=== PATIENT | female | born 1960 | race Caucasian/White ===

== ENCOUNTER → 2016-06-16 | Outpatient (CLI) | payer OTHER, MEDICAID ==
[~2016-06-16] MED LIST: GADOBUTROL 10 ML VIAL IVP ONE
--- NOTE | 2016-06-16 10:59 | MR ---
Unenhanced and Enhanced MR Imaging of the Brain (With Additional Attention to the Pituitary Gland) Clinical History: 56-year-old female with a history of [place]'s disease and prior pituitary surgery for an adenoma in 2002. ICD 10 Diagnostic Code: D35.2. Technique: Sagittal and axial T1-weighted, axial SWI, T2, FLAIR, DWI, and ADC imaging of the brain. P re- and postcontrast sagittal and coronal reduced opdjs-co-doxk thin-collimated sequencing through th e sella turcica. Dynamic coronal T1-weighted sequences were obtained at multiple time intervals throu gh the pituitary gland. Additionally, contrast-enhanced axial SPGR and coronal T1-weighted spin-echo and sagittal T2 FLAIR sequences of the brain were obtained. The patient received 5 mL of IV Gadavist without complication. Comparison Studies: MR imaging of the brain, dated January 22, 2011 and January 09, 2010. Findings: There are stable postsurgical features involving the pituitary gland, with a decreased volu me of the left pituitary lobe. There is a stable diminished focus of contrast enhancement measuring 4 .0 mm in the right pituitary lobe (seen on the initial dynamic contrast-enhanced series), which could reflect a tiny residual "microadenoma" or an area of scarring. The lack of interval change is consis tent with a benign etiology. There is no infundibular deviation or suprasellar extension. The optic c hiasm appears normal. There is a normal appearance to the cavernous carotid artery flow-voids. There is normal signal within the clivus, and the sphenoid sinus is patent. The prepontine cistern is daniel l. The ventricles and basilar cisterns are normal in size, and symmetrical in configuration. There is no midline shift or other evidence of mass effect. There is no acute or subacute abnormal intra- or ext raaxial fluid collection. On the FLAIR sequences, there is some persistent periventricular hyperinten se signal in the deep white matter (please reference axial series 6, images 20-24), which is unchange d. The brainstem and cerebellum are normal. The SWI sequences do not reveal any blooming artifact to suggest occult hemorrhagic products or amyloid angiopathy. There is no restricted diffusion to sugges t an acute or subacute infarct. The brainstem and cerebellum appear normal. There are appropriate leon tebrobasilar, carotid artery, and dural venous sinus flow-voids. The craniocervical junction, pineal gland, and orbits are unremarkable. The paranasal sinuses and mastoids are patent. There is no unusua l parenchymal or leptomeningeal enhancement of the brain. Impression: Stable MRI appearance of the brain and of the pituitary gland, compared to January 22 and January 09, 2010.
== END ==
LOC: FIMAGING 04-22 12:44
PROVIDERS: ATTEND Neurological Surgery
DX: Z86.39 Personal history of other endocrine, nutritional and metabolic disease (principal)
CPT/HCPCS: 70553; A9585

== ENCOUNTER → 2016-06-20 | Outpatient (CLI) | payer OTHER, MEDICAID ==
--- NOTE | 2016-06-20 17:17 | MR ---
MRI of the Left Knee Clinical Indications: Left knee pain and locking, evaluate for meniscal tear. Technique: Fat-suppressed, fast T2-weighted images were acquired axially, sagittally, and coronally. T1-weighted sagittal images were obtained. Findings Medial compartment: Undersurface fraying and mild partial tear of the medial meniscus is present at the posteromedial corner, best visualized on sagittal image #7 of series #6 and coronal image #18 of series #4. The remainder of the medial meniscus is intact, and medial compartment articular cartilag e is intact. Lateral compartment: Meniscus and articular cartilage appear intact. Patellofemoral compartment: No focal chondral lesion. Anterior and posterior cruciate ligaments are intact. Medial and lateral collateral ligaments are in tact. Distal quadriceps and patellar tendons are intact. No significant joint effusion. IMPRESSION: Undersurface fraying and mild partial tear posterior horn medial meniscus at the postero medial corner.
== END ==
LOC: FIMAGING 09:28
PROVIDERS: ATTEND Orthopaedic Surgery Foot and Ankle Surgery
DX: M23.222 Derangement of posterior horn of medial meniscus due to old tear or injury, left knee (principal)

== ENCOUNTER 2017-07-14 16:35 | Emergency (ER) | payer OTHER, MEDICAID ==
[2017-07-14] MEDS ORDERED: ONDANSETRON DISINTEGRATING 4 MG TAB PO ONE (17:19)
[2017-07-14] MEDS ORDERED: NS 1,000 ML IV ONE ×2 (19:23)
--- NOTE | 2017-07-14 19:27 | EDPHY ---
H & P Time Seen by Provider: 07/14/17 17:42 HPI/ROS: Chief complaint. Vomiting and diarrhea and possible flu HPI. 57-year-old female presents emergency department with vomiting and diarrhea and abdominal pain. She began have burning in the upper abdomen 5 days ago and it lasted about 3 days ago. There was no radiation to her back. No chest pain, shortness of breath, cough, fever. Vomiting twice yesterday and once today. Diarrhea x8. Denies travel or bad food and thinks it is the flu. She has a history of adrenal insufficiency and has been stress dosing hydrocortisone. ROS Constitutional. no fever/chills, no weakness Eyes. no problems with vision ENT. no sore throat, no nasal drainage Cardiovascular. no chest pain Respiratory. no shortness of breath, no cough Abdominal. Upper abdominal pain and vomiting diarrhea . no problems urinating MS. no calf pain/swelling, no neck/back pain, no joint pain Skin. no rash Lymph. no swollen glands Neuro. no headache, no dizziness, no difficulty walking or with speech Past Medical/Surgical History: Sara's disease, Eagle's disease, fibromyalgia, chronic fatigue Social History: Single, nonsmoker, no alcohol Smoking Status: Never smoked Physical Exam: General Appearance: Alert well-developed female mild distress vital signs show temp 37.0 degrees and blood pressure to be 168/85 Eyes: Pupils equal and round no pallor or injection. ENT, Mouth: Mucous membranes are moist. Respiratory: There are no retractions, lungs are clear to auscultation. Cardiovascular: Regular rate and rhythm. Gastrointestinal: Abdomen is soft and nontender, no masses, bowel sounds normal. Neurological: Awake and alert, sensory and motor exams grossly normal. Skin: Warm and dry, no rashes. Musculoskeletal: Neck is supple nontender. Extremities symmetrical, full range of motion. Psychiatric: Patient is oriented X 3, there is no agitation. Constitutional: Initial Vital Signs Temperature (C) 37.0 C 07/14/17 16:41 Heart Rate 89 07/14/17 16:41 Respiratory Rate 24 H 07/14/17 16:41 Blood Pressure 168/85 H 07/14/17 16:41 O2 Sat (%) 100 07/14/17 16:41 O2 Delivery Mode Room Air O2 (L/minute) 96 Allergies/Adverse Reactions: codeine [Codeine] Adverse Reaction (Verified 06/10/15 20:30) Home Medications: Medication Instructions Recorded NK [No Known Home Meds] 07/14/17 Medical Decision Making - Diagnostics Imaging Results: One-view chest x-ray interpreted by me is normal Procedures: IV normal saline. Flu swab ED Course/Re-evaluation: Recheck 9:30 p.m.. Patient has had 2 L of fluid. Patient and I discussed imaging and lab results. We discussed treatment plan including criteria for return importance of follow-up further evaluation. She expresses understanding and agreement Differential Diagnosis: This certainly appears to be some anxiety with this. She has had vomiting and diarrhea. She thought she had the flu fluids tests are negative. This appears to be a vomiting and diarrhea illness. It is somewhat complicated by the fact that she has adrenal insufficiency and she had spoken to her fisher diver net who is had her taking stress doses of cords all. Patient is quite anxious. She is really not vomited in the department. She is taking oral fluids. - Data Points Laboratory Results: Laboratory Results 07/14/17 18:50 07/14/17 18:50 07/14/17 07/14/17 07/14/17 18:50 18:50 18:50 WBC 13.06 10^3/uL H 10^3/uL (3.80-9.50) RBC 4.21 10^6/uL 10^6/uL (4.18-5.33) Hgb 13.7 g/dL g/dL (12.6-16.3) Hct 38.5 % % (38.0-47.0) MCV 91.4 fL fL (81.5-99.8) MCH 32.5 pg pg (27.9-34.1) MCHC 35.6 g/dL g/dL (32.4-36.7) RDW 12.5 % % (11.5-15.2) Plt Count 330 10^3/uL 10^3/uL (150-400) MPV 11.7 fL fL (8.7-11.7) Neut % (Auto) 85.2 % H % (39.3-74.2) Lymph % (Auto) 11.0 % L % (15.0-45.0) Bond % (Auto) 3.0 % L % (4.5-13.0) Eos % (Auto) 0.1 % L % (0.6-7.6) Baso % (Auto) 0.4 % % (0.3-1.7) Nucleat RBC Rel Count 0.0 % % (0.0-0.2) Absolute Neuts (auto) 11.13 10^3/uL H 10^3/uL (1.70-6.50) Absolute Lymphs (auto) 1.44 10^3/uL 10^3/uL (1.00-3.00) Absolute Monos (auto) 0.39 10^3/uL 10^3/uL (0.30-0.80) Absolute Eos (auto) 0.01 10^3/uL L 10^3/uL (0.03-0.40) Absolute Basos (auto) 0.05 10^3/uL 10^3/uL (0.02-0.10) Absolute Nucleated RBC 0.00 10^3/uL 10^3/uL (0-0.01) Immature Gran % 0.3 % % (0.0-1.1) Immature Gran # 0.04 10^3/uL 10^3/uL (0.00-0.10) Sodium 138 mEq/L mEq/L (135-145) Potassium 4.0 mEq/L mEq/L (3.5-5.2) Chloride 103 mEq/L mEq/L (97-110) Carbon Dioxide 18 mEq/l L mEq/l (22-31) Anion Gap 17 mEq/L H mEq/L (8-16) BUN 13 mg/dL mg/dL (7-23) Creatinine 0.6 mg/dL mg/dL (0.6-1.0) Estimated GFR > 60 Glucose 121 mg/dL H mg/dL (70-100) Calcium 10.2 mg/dL mg/dL (8.5-10.4) Lipase 156 IU/L IU/L (23-300) Nasal Influenza A PCR NEGATIVE FOR FLU A (NEGATIVE) Nasal Influenza B PCR NEGATIVE FOR FLU B (NEGATIVE) Medications Given: Discontinued Medications Sodium Chloride (Ns) 1,000 mls @ 0 mls/hr IV EDNOW ONE; Wide Open PRN Reason: Protocol Stop: 07/14/17 19:24 Last Admin: 07/14/17 19:33 Dose: 1,000 mls Sodium Chloride (Ns) 1,000 mls @ 0 mls/hr IV EDNOW ONE; Wide Open PRN Reason: Protocol Stop: 07/14/17 19:24 Last Admin: 07/14/17 19:33 Dose: 1,000 mls Ondansetron HCl (Zofran Odt) 4 mg PO EDNOW ONE Stop: 07/14/17 17:20 Last Admin: 07/14/17 17:22 Dose: 4 mg Ondansetron HCl (Zofran) 4 mg IVP EDNOW ONE Stop: 07/14/17 21:34 Last Admin: 07/14/17 21:34 Dose: 4 mg Departure - Departure Disposition: Home, Routine, Self-Care Clinical Impression: Nausea vomiting and diarrhea Condition: Good Instructions: Gastroenteritis (ED) Additional Instructions: Frequent, small sips fluids. Gradual diet advancement. Zofran when you get home and then 1 every 3-4 hours as needed for nausea vomiting. Ativan also when you get home and after you have taken the Zofran. Use Ativan 1 pill every 6-8 hours for anxiety and to help you sleep. Call Dr. Stephens in the morning to help guide further cortisol therapy. Return tomorrow for worsening symptoms or if not improved Referrals: Day Flores MD [Primary Care Provider] - As per Instructions Tiny Stephens MD [Medical Doctor] - As per Instructions
[2017-07-14 19:43] LABS: PLATELET COUNT 330 10^3/uL (150-400)
[2017-07-14 20:50] VITALS: RESP 18; O2SAT 96
[2017-07-14] MEDS ORDERED: ONDANSETRON 4 MG/2 ML VIAL ONE (21:32)
[2017-07-14] MEDS ORDERED: ONDANSETRON 4 MG/2 ML VIAL IVP ONE (21:33)
[2017-07-14 21:37] VITALS: BP 123/81; PULSE 82
[2017-07-14] MEDS ORDERED: LORAZEPAM 1 MG PREPACK#4 BTL TAKEHOME ONE (21:48)
[2017-07-14] MEDS ORDERED: ONDANSETRON 4MG PREPACK#2 BTL TAKEHOME ONE (21:48)
[2017-07-14 22:06] VITALS: TEMP 98.4
== END 2017-07-14 22:06 | disposition home or self-care (01) ==
DX: R19.7 Diarrhea, unspecified (principal); R11.2 Nausea with vomiting, unspecified; E86.9 Volume depletion, unspecified
CPT/HCPCS: 71045; 96361; 96374; 99284; J2405

== ENCOUNTER → 2018-03-05 | Outpatient (CLI) | payer OTHER, MEDICAID | LOC: BMCIMAGING 09:38 | PROVIDERS: ATTEND Internal Medicine Rheumatology | DX: Z13.820 Encounter for screening for osteoporosis (principal); M81.0 Age-related osteoporosis without current pathological fracture; Z79.890 Hormone replacement therapy ==